=== PATIENT | female | born 1995 | race Caucasian/White ===

== ENCOUNTER 2018-05-07 18:44 | Emergency (ER) | payer MEDICAID ==
[~2018-05-07] VITALS: Ht 157.5 cm; Wt 59.0 kg
[2018-05-07 18:55] VITALS: Ht 157.5 cm; Wt 59.0 kg
[2018-05-07 21:48] LABS: BASOPHIL % 0.9 % (0-2); PLATELET COUNT 372 x10^3mcL (130-400)
[2018-05-07 21:55] LABS: RED CELL DISTRIBUTION WIDTH 18.4 % (11.5-14.5)
[2018-05-08 00:42] VITALS: BP 98/66
== END 2018-05-08 00:42 | disposition home or self-care (01) ==
LOC: ED 18:44
PROVIDERS: Emergency Medicine
DX: R10.9 Unspecified abdominal pain (principal)
CPT/HCPCS: 36415